=== PATIENT | male | born 1945 | race Two or more races ===

== ENCOUNTER 2018-07-31 13:35 | Emergency (ER) | payer OTHER ==
[~2018-07-31] VITALS: Ht 182.9 cm; Wt 74.0 kg
[2018-07-31] MEDS ORDERED: ACETAMINOPHEN 325MG TABLET PO ONE (14:45)
[2018-07-31 18:00] VITALS: BP 168/87
== END 2018-07-31 18:20 | disposition home or self-care (01) ==
LOC: ER 13:35
DX: S00.81XA Abrasion of other part of head, initial encounter (principal); S16.1XXA Strain of muscle, fascia and tendon at neck level, initial encounter; R07.89 Other chest pain; I10 Essential (primary) hypertension; E11.9 Type 2 diabetes mellitus without complications; E78.00 Pure hypercholesterolemia, unspecified; V47.5XXA Car driver injured in collision with fixed or stationary object in traffic accident, initial encounter; Y93.89 Activity, other specified; Y92.524 Gas station as the place of occurrence of the external cause
CPT/HCPCS: 71045; 72040; 93005; 99284